=== PATIENT | female | born 1990 | race Caucasian/White ===

== ENCOUNTER 2018-04-10 14:24 | Emergency (ER) | payer MEDICAID ==
[~2018-04-10] VITALS: Ht 175.3 cm; Wt 145.9 kg
[2018-04-10 15:09] LABS: CLARITY,URINE TURBID (Clear); COLOR,URINE YELLOW (Yellow); GLUCOSE, URINE NEGATIVE (Neg); KETONES,URINE NEGATIVE (Neg); LEUKOCYTE ESTERASE ,URINE NEGATIVE (Neg); NITRITES, URINE NEGATIVE (Neg); OCCULT BLOOD,URINE MODERATE (Neg); PH,URINE 5.5 (4.8-8.0); PROTEIN,URINE NEGATIVE (Neg); UROBILINOGEN,URINE 0.2 E.U/dL (0.2-1.0)
[2018-04-10] MEDS ORDERED: normal saline 1000ML IV soln IVB ONE (15:10)
[2018-04-10 15:13] LABS: URINE HCG NEGATIVE (NEG)
[2018-04-10 15:15] LABS: UA COLLECTION TYPE CLN CATCH MIDSTREAM
[2018-04-10 15:18] LABS: AMORPHOUS URATES 3+
[2018-04-10 15:19] LABS: BACTERIA,URINE 2+ /HPF (Neg); RBC,URINE 0-2 /HPF (0-2); WBC,URINE 0-4 /HPF (0-4)
[2018-04-10 15:20] LABS: SQUAMOUS EPITHELIAL CELL,UR MANY /LPF (FEW)
[2018-04-10] MEDS ORDERED: ondansetron/PF 4mg/2ml inj IV ONE (15:25)
[2018-04-10 15:38] LABS: ALANINE AMINOTRANSFERASE 18 U/L (12-78); ALBUMIN 4.1 G/DL (3.4-5.0); ALBUMIN/GLOBULIN RATIO 1.1 (1.1-1.5); ALKALINE PHOSPHATASE 80 IU/L (46-116); ANION GAP 12 (8-16); ASPARTATE AMINO TRANSFERASE 11 U/L (10-37); BILIRUBIN,TOTAL 0.7 MG/DL (0.1-1.0); BLOOD UREA NITROGEN 15 MG/DL (7-18); BUN/CREATININE RATIO 16.5 (6.6-38.0); CALCIUM 9.2 MG/DL (8.5-10.1); CHLORIDE 103 MMOL/L (99-107); CREATININE 0.91 MG/DL (0.40-0.90); GLUCOSE 93 MG/DL (70-104); POTASSIUM 3.8 MMOL/L (3.5-5.1); SODIUM 138 MMOL/L (135-145); TOTAL PROTEIN 7.9 G/DL (6.4-8.2); eGFR 73 ML/MIN
[2018-04-10] MEDS: diatr meglu/diatrizoate 30ml oral sol.-(3 dose) bottle PO SCH ×3 (15:56→17:30)
[2018-04-10 15:59] LABS: BASOPHILS # (AUTO) 0.1 X10'3 (0-0.2); BASOPHILS % (AUTO) 0.6 % (0-1); EOSINOPHILS # (AUTO) 0.2 X10'3 (0-0.9); EOSINOPHILS % (AUTO) 2.2 % (0-6); HEMATOCRIT 41.9 % (35.0-45.0); HEMOGLOBIN 14.2 g/dl (12.0-16.0); LYMPHOCYTES # (AUTO) 1.6 X10'3 (1.1-4.8); LYMPHOCYTES % (AUTO) 14.4 % (21-51); MEAN CORPUSCULAR HEMOGLOBIN 27.8 PG (27.0-31.0); MEAN CORPUSCULAR HGB CONC 33.9 % (33.0-36.5); MEAN PLATELET VOLUME 10.6 FL (7.4-10.4); MONOCYTES # (AUTO) 0.5 X10'3 (0-0.9); MONOCYTES % (AUTO) 4.2 % (2-12); NEUTROPHILS # (AUTO) 8.6 X10'3 (1.8-7.7); NEUTROPHILS % (AUTO) 78.6 % (42-75); PLATELET COUNT 207 X10'3 (140-440); RED BLOOD COUNT 5.11 X10'6 (4.20-5.60); RED CELL DISTRIBUTION WIDTH 14.4 % (11.5-14.5)
[2018-04-10 16:40] LABS: LARGE PLATELETS FEW; PLATELET ESTIMATE NORMAL
[2018-04-10 16:54] LABS: OCCULT BLOOD STOOL POSITIVE (Neg)
[2018-04-10] MEDS ORDERED: iohexol 300mg/ml 100ml inj. ONE (17:28)
[2018-04-10 18:41] VITALS: BP 128/88
== END 2018-04-10 18:43 | disposition home or self-care (01) ==
LOC: ER 14:25
DX: K52.9 Noninfective gastroenteritis and colitis, unspecified (principal); E66.01 Morbid (severe) obesity due to excess calories; M06.9 Rheumatoid arthritis, unspecified
CPT/HCPCS: 36415; 74177; 80053; 81001; 81025; 82272; 85025; 85610; 86885; 86900; 86901; 96361; 96374; 99285; J2405; J7030; Q9963; Q9967